=== PATIENT | female | born 1990 | race Two or more races ===

== ENCOUNTER 2018-09-13 18:38 | Emergency (ER) | payer BC ==
[~2018-09-13] VITALS: Ht 170.2 cm; Wt 57.6 kg
== END 2018-09-13 22:09 | disposition home or self-care (01) ==
LOC: ER 18:38
DX: H83.8X3 Other specified diseases of inner ear, bilateral (principal)

== ENCOUNTER 2018-10-21 09:31 | Outpatient (CLI) | payer OTHER | END 2018-10-21 09:42 | disposition home or self-care (01) | LOC: SONOGRAMA 09:31 → MAMO-SONO 09:45 | DX: R22.1 Localized swelling, mass and lump, neck (principal) ==

== ENCOUNTER 2018-11-01 07:22 | Outpatient (CLI) | payer OTHER | END 2018-11-01 07:24 | disposition home or self-care (01) | LOC: SONOGRAMA 07:22 | DX: R22.1 Localized swelling, mass and lump, neck (principal) ==

== ENCOUNTER 2021-08-08 09:23 | Outpatient (CLI) | payer OTHER | END 2021-08-08 09:34 | disposition home or self-care (01) | LOC: RAD 09:23 | PROVIDERS: ATTEND Physical Medicine & Rehabilitation | DX: M51.36 Other intervertebral disc degeneration, lumbar region (principal); M54.59 Other low back pain ==

== ENCOUNTER 2022-03-10 10:16 | Outpatient (CLI) | payer OTHER | END 2022-03-10 10:33 | disposition home or self-care (01) | LOC: SONOGRAMA 10:16 | DX: N63.21 Unspecified lump in the left breast, upper outer quadrant (principal); N63.12 Unspecified lump in the right breast, upper inner quadrant ==